=== PATIENT | male | born 1990 | race Caucasian/White ===

== ENCOUNTER → 2023-03-09 07:25 | Outpatient (CLI) | payer OTHER, SELFPAY ==
--- NOTE | 2023-03-09 | DI.ECHO.S_ITS ---
[facility] +---------+ : : [address] : : : : [id number] : : : : Phone: [phone]+ Echocardiogram Report + + :Name: GIL MCCABE Study Date: 03/09/2023 Height: 71 in : :[facility] ReadingLocation: Weight: 195 lb : : Gender: Male BSA: 2.1 m2 : :: 1990 Age: 32 yrs BP: 146/80 mmHg: :Reason For Study: CHEST PAIN : :Ordering Physician: RENE, : :TAYLOR Performed By: Marina Abrams : :Referring: TAYLOR LÓPEZ : + + Interpretation Summary The left ventricle is normal in size and wall thickness. Left ventricular systolic function appears normal without focal wall motion abnormalities. The ejection fraction is estimated to be 60-65%. Diastolic parameters suggest probable normal left ventricular diastolic function and normal filling pressures. The right ventricle is normal in size and function. The left atrial size is normal. Right atrial size is normal. There is no significant valvular heart disease. The aortic root is normal size. Procedure: A two-dimensional transthoracic echocardiogram with color flow and Doppler was performed. The study quality was technically adequate. There is no prior echocardiogram noted for this patient. The patient was in sinus rhythm with heart rates between 63-78 bpm during the exam. Left Ventricle: The left ventricle is normal in size and wall thickness. Left ventricular systolic function appears normal without focal wall motion abnormalities. The ejection fraction is estimated to be 60-65%. Diastolic parameters suggest probable normal left ventricular diastolic function and normal filling pressures. Right Ventricle: The right ventricle is normal in size and function. Atria: The left atrial size is normal. Right atrial size is normal. There is no Doppler evidence for an interatrial shunt. Mitral Valve: The mitral valve is normal in structure and function. There is no mitral regurgitation noted. Aortic Valve: The aortic valve is trileaflet. The aortic valve opens well. There is no aortic valve stenosis. No aortic regurgitation is present. Tricuspid Valve: The tricuspid valve is normal in structure and function. There is trace tricuspid regurgitation. Pulmonic Valve: The pulmonic valve leaflets are thin and pliable; valve motion is normal. There is no pulmonic valvular regurgitation. There is no significant valvular heart disease. Great Vessels: The aortic root is normal size. The dimensions of the ascending aorta are normal. The IVC is of normal diameter and collapses greater than 50% with a sniff. This suggests a low right atrial pressure of 3 mm Hg. Pericardium/ Pleura There is no pericardial effusion. There is no pleural effusion. MMode/2D Measurements & Calculations LVIDd: 4.7 cm LVOT diam: 2.0 cm LVIDs: 3.2 cm Ao root diam: 2.8 cm FS: 32.3 % asc Aorta Diam: 2.8 cm EPSS: 0.79 cm Ao Arch Diam (Prox Trans): 2.6 cm IVSd: 0.68 cm LVPWd: 0.68 cm LV olivares. diameter/BSA (cm/m^2): 2.3 LV sys. diameter/BSA (cm/m^2): 1.5 LA A2 area: 18.2 cm2 RA long axis: 5.2 cm LA A4 area: 17.5 cm2 RA area: 16.9 cm2 LA length (vol): 5.8 cm RA vol: 46.7 ml LA vol: 46.7 ml RA : 22.4 ml/m2 LA vol index: 22.4 ml/m2 IVC diam: 1.6 cm RVD1 (basal): 3.8 cm RVD2 (mid): 3.0 cm TAPSE: 2.8 cm Doppler Measurements & Calculations Ao V2 max: 154.0 cm/sec LVOT Max Ammon: 104.4 cm/sec Ao V2 mean: 110.4 cm/sec LV V1 max P.4 mmHg Ao max P.5 mmHg LV V1 VTI: 20.1 cm Ao mean P.4 mmHg EMBER(I,D): 1.9 cm2 Ao V2 VTI: 33.2 cm EMBER(V,D): 2.1 cm2 sev ratio: 0.61 EMBER indexed to BSA (cm^2/m^2): 0.91 MV E max ammon: 84.8 cm/sec PA V2 max: 112.5 cm/sec MV A max ammon: 60.4 cm/sec PA V2 mean: 83.1 cm/sec MV E/A: 1.4 PA mean P.0 mmHg Med Peak E' Ammon: 16.3 cm/sec PA pr(Accel): 37.9 mmHg E/E' med: 5.2 Lat Peak E' Ammon: 18.5 cm/sec E/E' lat: 4.6 E/e' average: 4.9 MV dec time: 0.21 sec SV(LVOT): 63.1 ml Reading Physician:05:39 PM
== END ==
PROVIDERS: Referring Provider Chiropractor; Visit Provider Chiropractor
DX: R07.9 Chest pain, unspecified (principal)
CPT/HCPCS: 93306